=== PATIENT | male | born 1990 | race Caucasian/White ===

== ENCOUNTER 2016-12-15 16:16 | Emergency (ER) | payer OTHER ==
[2016-12-15] MEDS ORDERED: Sodium Chloride 0.9% 2.5 ML Syringe FLUSH PRN (16:57)
[2016-12-15] MEDS ORDERED: LORazepam 0.5 MG Tab PO ONE (16:57)
[2016-12-15] MEDS ORDERED: Sodium Chloride 0.9% 10 ML Syringe FLUSH PRN (16:57)
[2016-12-15] MEDS ORDERED: Sodium Chloride 0.9% 1,000 ML IV ONE (16:57)
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
[2016-12-15 17:58] LABS: CHLORIDE,CL 103 mmol/L (98-110); SODIUM,NA 140 mmol/L (136-146)
[2016-12-15 18:38] VITALS: BP 138/85
== END 2016-12-15 18:25 | disposition home or self-care (01) ==
LOC: MW.ED 16:16
DX: E86.0 Dehydration (principal); M62.81 Muscle weakness (generalized); T43.225A Adverse effect of selective serotonin reuptake inhibitors, initial encounter; F17.210 Nicotine dependence, cigarettes, uncomplicated; Z79.899 Other long term (current) drug therapy
CPT/HCPCS: 36415; 80053; 85025; 96360; 99284; A9270; G0480; J7040; 99283

== ENCOUNTER 2017-02-16 01:00 | Emergency (ER) | payer OTHER ==
[2017-02-16] MEDS ORDERED: Lidocaine/EPINEPHrine/Tetracaine Soln 1 ML TOP ONE (01:02)
[2017-02-16] MEDS ORDERED: Bacitracin Oint 1 GM U/D Packet TOP ONE (01:06)
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
[2017-02-16] MEDS ORDERED: Sodium Chloride 0.9% 10 ML Syringe FLUSH PRN (01:57)
[2017-02-16] MEDS ORDERED: Sodium Chloride 0.9% 2.5 ML Syringe FLUSH PRN (01:57)
[2017-02-16] MEDS ORDERED: Sodium Chloride 0.9% 1,000 ML IV SCH (02:00)
[2017-02-16] MEDS ORDERED: LORazepam 2 MG/ML MDV IVPUSH ONE (02:25)
[2017-02-16 02:33] LABS: CHLORIDE,CL 106 mmol/L (98-110); SODIUM,NA 143 mmol/L (136-146)
[2017-02-16 02:59] VITALS: BP 118/79
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
== END 2017-02-16 02:42 ==
LOC: MW.ED 01:00
DX: S06.6X9A Traumatic subarachnoid hemorrhage with loss of consciousness of unspecified duration, initial encounter (principal); S06.5X9A Traumatic subdural hemorrhage with loss of consciousness of unspecified duration, initial encounter; S01.01XA Laceration without foreign body of scalp, initial encounter; F41.9 Anxiety disorder, unspecified; Z79.899 Other long term (current) drug therapy; W01.0XXA Fall on same level from slipping, tripping and stumbling without subsequent striking against object, initial encounter
CPT/HCPCS: 70450; 80053; 85025; 85610; 96361; 96374; 99285; G0480; J2060; J7040

== ENCOUNTER 2017-02-20 11:30 | Emergency (ER) | payer OTHER ==
--- NOTE | 2017-02-20 11:45 | EDM.PDOC ---
ED HPI GENERAL MEDICAL PROBLEM - General Chief Complaint: Headache Stated Complaint: HEAD INJURY Time Seen by Provider: 02/20/17 12:52 - History of Present Illness INITIAL COMMENTS - FREE TEXT/NARRATIVE: HISTORY AND PHYSICAL: History of present illness: Patient is a 26-year-old white male who was seen on February 16 for traumatic head injury in which he had a traumatic small sub-dural and subarachnoid he was transferred to [facility] and subsequently left AMA yesterday he presented to the clinic today with headache and was referred back to the emergency department patient is refusing any treatment he is needle phobic he states his headache is similar to what has been or last 3-4 days he's had no new neurological signs or symptoms he does agree to repeat CT scan he again is refusing any other diagnostics or therapeutics Review of systems: As per history of present illness and below otherwise all systems reviewed and negative. Past medical history: As per history of present illness and as reviewed below otherwise noncontributory. Surgical history: As per history of present illness and as reviewed below otherwise noncontributory. Social history: No reported history of drug or alcohol abuse. Family history: As per history of present illness and as reviewed below otherwise noncontributory. Physical exam: HEENT: Atraumatic, normocephalic, pupils reactive, negative for conjunctival pallor or scleral icterus, mucous membranes moist, throat clear, neck supple, nontender, trachea midline. Lungs: Clear to auscultation, breath sounds equal bilaterally, chest nontender. Heart: S1S2, regular, negative for clicks, rubs, or JVD. Abdomen: Soft, nondistended, nontender. Negative for masses or hepatosplenomegaly. Negative for costovertebral tenderness. Pelvis: Stable nontender. Genitourinary: Deferred. Rectal: Deferred. Extremities: Atraumatic, negative for cords or calf pain. Neurovascular unremarkable. Neuro: Awake, alert, oriented. Cranial nerves II through XII unremarkable. Cerebellum unremarkable. Motor and sensory unremarkable throughout. Exam nonfocal. Diagnostics: CT brain Therapeutics: Deferred Impression: #1 history of head trauma with subarachnoid/subdural hemorrhage Definitive disposition and diagnosis as appropriate pending reevaluation and review of above. head Pain Score (Numeric/FACES): 5 - Related Data Allergies Allergy/AdvReac Type Severity Reaction Status Date / Time No Known Allergies Allergy Verified 02/20/17 11:53 Home Meds: Home Meds Hydrocodone/Acetaminophen [Hydrocodon-Acetaminophen 5-325] 1 each PO Q4HR PRN [History] levETIRAcetam [Keppra] 500 mg PO Q12HR 02/20/17 [History] Past Medical History - Past Health History Medical/Surgical History: Denies Medical/Surgical History Psychiatric History: Reports: Anxiety - Infectious Disease History Infectious Disease History: Reports: Chicken Pox - Past Surgical History Other HEENT Surgeries/Procedures: "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" Social & Family History - Family History Family Medical History: Noncontributory - Tobacco Use Smoking Status *Q: Current Every Day Smoker Years of Tobacco use: 10 Packs/Tins Daily: 1 Second Hand Smoke Exposure: No - Caffeine Use Caffeine Use: Reports: Coffee, Energy Drinks - Alcohol Use Days Per Week of Alcohol Use: 0 - Recreational Drug Use Recreational Drug Use: No Drug Use in Last 12 Months: Yes Recreational Drug Type: Reports: Marijuana/Hashish Recreational Drug Use Frequency: Binges ED ROS GENERAL - Review of Systems Review Of Systems: ROS reveals no pertinent complaints other than HPI. ED EXAM, GENERAL - Physical Exam Exam: See Below (See dictation) Course - Vital Signs Text/Narrative:: Patient's course in emergency department has been unremarkable CT does reflect a slight progression of his subarachnoid and subdural with small edema noted no shift I discussed these findings with patient and gave options including admission here transfer to [place] patient declines both he remains awake alert oriented 3 understands risks and benefits request discharge home and states he will follow-up with [place] he agrees to return for persistent or worsening symptoms as discussed and will be kept off work until reevaluated Last Recorded V/S: Last Vital Signs Temp 36.8 C 02/20/17 11:30 Pulse 77 02/20/17 11:30 Resp 18 02/20/17 11:30 BP 122/69 02/20/17 11:30 Pulse Ox 97 02/20/17 11:30 Departure - Departure Time of Disposition: 12:52 Disposition: Against Medical Advice 07 Condition: Good Clinical Impression: Subarachnoid hemorrhage, Subdural hemorrhage - Discharge Information Referrals: PCP,Unknown [Primary Care Provider] - Forms: ED Department Discharge Additional Instructions: The following information is given to patients seen in the emergency department who are being discharged to home. This information is to outline your options for follow-up care. We provide all patients seen in our emergency department with a follow-up referral. The need for follow-up, as well as the timing and circumstances, are variable depending upon the specifics of your emergency department visit. If you don't have a primary care physician on staff, we will provide you with a referral. We always advise you to contact your personal physician following an emergency department visit to inform them of the circumstance of the visit and for follow-up with them and/or the need for any referrals to a consulting specialist. The emergency department will also refer you to a specialist when appropriate. This referral assures that you have the opportunity for followup care with a specialist. All of these measure are taken in an effort to provide you with optimal care, which includes your followup. Under all circumstances we always encourage you to contact your private physician who remains a resource for coordinating your care. When calling for followup care, please make the office aware that this follow-up is from your recent emergency room visit. If for any reason you are refused follow-up, please contact the [facility] emergency department at and asked to speak to the emergency department charge nurse. Follow-up private medical doctor in [place] as discussed return as needed as discussed
--- NOTE | 2017-02-20 12:39 | CT ---
EXAMINATION: Non contrast CT head. Coronal and sagittal reformats. HISTORY: Headache Comparison: 02/16/2017. FINDINGS: There is increased hemorrhage within the right frontal region. There is a new right frontal subdural hematoma noted. There are also hyperdense areas extending slightly into the frontal lobe with adjacen t edema. There are are also mild cortical hypodensity within the medial left frontal lobe. No signifi cant mass effect or midline shift. No abnormal intracranial calcifications are detected. No evidence of substantial vascular calcificat ions. Paranasal sinuses and mastoid air cells are well aerated without substantial findings. Pituitary fossa appears unremarkable. Orbits and globes appear symmetric. Calvarium is intact. No evidence of skull fracture. IMPRESSION: 1. Mild extension of the previously demonstrated subarachnoid hemorrhage is noted within the right fr ontal region with a new small subdural component. There is moderate adjacent edema. 2. There is also hypodense portion within the left frontal lobe likely representing a small cortical contusion as well without significant hemorrhagic component. Line 3. No midline shift or mass effect.
[2017-02-20 13:08] VITALS: BP 114/61
== END 2017-02-20 13:01 | disposition left against medical advice (07) ==
LOC: MW.ED 11:30
DX: S06.6X9A Traumatic subarachnoid hemorrhage with loss of consciousness of unspecified duration, initial encounter (principal); S06.5X9A Traumatic subdural hemorrhage with loss of consciousness of unspecified duration, initial encounter; F17.210 Nicotine dependence, cigarettes, uncomplicated; X58.XXXA Exposure to other specified factors, initial encounter
CPT/HCPCS: 70450; 70450-26; 99283; 99285-25

== ENCOUNTER 2017-04-26 11:07 | Emergency (ER) | payer OTHER ==
--- NOTE | 2017-04-26 11:19 | EDM.PDOC ---
ED HPI GENERAL MEDICAL PROBLEM - General Chief Complaint: General Stated Complaint: MEDICAL CLEARANCE FOR WORK Time Seen by Provider: 04/26/17 11:18 Source of Information: Reports: Patient History Limitations: Reports: No Limitations - History of Present Illness INITIAL COMMENTS - FREE TEXT/NARRATIVE: HISTORY AND PHYSICAL: History of present illness: Patient is a 27-year-old male who presents to the emergency room by the request of his employer to be screened for alcohol use. Patient states last night he was using alcohol as today was supposed to be his day off. 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 Patient states that they are unable to go to occupational health, as "we can't ask that of him" - per his employer. Patient is alert and oriented and answering questions appropriately. Denies any systemic complaints at this time. Review of systems: As per history of present illness and below otherwise all systems reviewed and negative. Past medical history: As per history of present illness and as reviewed below otherwise noncontributory. Surgical history: As per history of present illness and as reviewed below otherwise noncontributory. Social history: No reported history of drug or alcohol abuse. Family history: As per history of present illness and as reviewed below otherwise noncontributory. Physical exam: General: Well-developed and well-nourished 27-year-old male. Alert and oriented. Appears nontoxic and in no acute distress. HEENT: Atraumatic, normocephalic, pupils reactive, negative for conjunctival pallor or scleral icterus, mucous membranes moist, throat clear, neck supple, nontender, trachea midline. Lungs: Clear to auscultation, breath sounds equal bilaterally, chest nontender. Heart: S1S2, regular rate and rhythm Abdomen: Soft, nondistended, nontender. Pelvis: Stable nontender. Genitourinary: Deferred. Rectal: Deferred. Extremities: Atraumatic, negative for cords or calf pain. Neurovascular unremarkable. Neuro: Awake, alert, oriented. Cranial nerves II through XII unremarkable. Cerebellum unremarkable. Motor and sensory unremarkable throughout. Exam nonfocal. Discussed with the patient appropriate channels for medical clearance to resume work. We will not be able to assess his ability to perform his job duties nor assess for acute alcohol intoxication. The patient offers no complaints and has no pain or concerns. Patient is aware of occupational health facilities, we will give phone numbers for him to follow-up with. Patient voices understanding and is agreeable to plan of care. Denies any further questions at this time. Diagnostics: [] Therapeutics: [] Impression: Medical screening Plan: 1. A emergency department does not do drugs or alcohol screenings for employment. Please follow up with occupational health for medical clearance. 2. Follow-up with your primary care provider as needed. Return to the ED as needed and as discussed. Definitive disposition and diagnosis as appropriate pending reevaluation and review of above. 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" Social & Family History - Family History Family Medical History: Noncontributory - Tobacco Use Smoking Status *Q: Current Every Day Smoker Years of Tobacco use: 10 Packs/Tins Daily: 1 Used Tobacco, but Quit: Yes Month Tobacco Last Used: 1 Second Hand Smoke Exposure: No - Caffeine Use Caffeine Use: Reports: Coffee, Energy Drinks - Alcohol Use Days Per Week of Alcohol Use: 0 - Recreational Drug Use Recreational Drug Use: No Drug Use in Last 12 Months: Yes Recreational Drug Type: Reports: Marijuana/Hashish Recreational Drug Use Frequency: Binges ED ROS GENERAL - Review of Systems Review Of Systems: ROS reveals no pertinent complaints other than HPI. ED EXAM, GENERAL - Physical Exam Exam: See Below (See dictation) Course - Vital Signs Last Recorded V/S: Last Vital Signs Temp 97.4 F 04/26/17 11:16 Pulse 118 H 04/26/17 11:16 Resp 18 04/26/17 11:16 BP 152/86 H 04/26/17 11:16 Pulse Ox 96 04/26/17 11:16 Departure - Departure Time of Disposition: 11:32 Disposition: Home, Self-Care 01 Clinical Impression: Encounter for wellness examination - Discharge Information Referrals: Betty Perez NP [Primary Care Provider] - Forms: ED Department Discharge Additional Instructions: My general discharge The following information is given to patients seen in the emergency department who are being discharged to home. This information is to outline your options for follow-up care. We provide all patients seen in our emergency department with a follow-up referral. The need for follow-up, as well as the timing and circumstances, are variable depending upon the specifics of your emergency department visit. If you don't have a primary care physician on staff, we will provide you with a referral. We always advise you to contact your personal physician following an emergency department visit to inform them of the circumstance of the visit and for follow-up with them and/or the need for any referrals to a consulting specialist. The emergency department will also refer you to a specialist when appropriate. This referral assures that you have the opportunity for follow-up care with a specialist. All of these measure are taken in an effort to provide you with optimal care, which includes your follow-up. Under all circumstances we always encourage you to contact your private physician who remains a resource for coordinating your care. When calling for follow-up care, please make the office aware that this follow-up is from your recent emergency room visit. If for any reason you are refused follow-up, please contact the [facility] Emergency Department at and asked to speak to the emergency department charge nurse. [facility] [address] [place] [id number] 1. A emergency department does not do drugs or alcohol screenings for employment. Please follow up with occupational health for medical clearance. 2. Follow-up with your primary care provider as needed. Return to the ED as needed and as discussed.
[2017-04-26 11:20] VITALS: BP 152/86
== END 2017-04-26 11:59 | disposition home or self-care (01) ==
LOC: MW.ED 11:07
DX: Z04.8 Encounter for examination and observation for other specified reasons (principal); F17.210 Nicotine dependence, cigarettes, uncomplicated
CPT/HCPCS: 99282

== ENCOUNTER 2017-07-01 11:58 | Emergency (ER) | payer OTHER ==
[2017-07-01 13:11] VITALS: BP 117/69
--- NOTE | 2017-07-01 14:14 | EDM.PDOC ---
ED HPI GENERAL MEDICAL PROBLEM - General Chief Complaint: General Stated Complaint: LEFT SIDE RIB PAIN Time Seen by Provider: 07/01/17 14:10 Source of Information: Reports: Patient History Limitations: Reports: No Limitations - History of Present Illness INITIAL COMMENTS - FREE TEXT/NARRATIVE: HISTORY AND PHYSICAL: History of present illness: 27-year-old male presents to the clinic with chief complaint of left rib pain. Patient fell approximately one week ago on his left side after slipping on the ice and experienced immediate pain. He has not sought any treatment over the past week. He has not been taking any medication for pain relief and has not applied any heat or ice to the left side. He noted that he was reaching above his head on the left side this morning and heard and felt a pop. Pain was initially 2 out of 10 after the fall and has now increased to 7 out of 10. He has increased pain with deep inspiration. Patient denies any other acute concerns at this time. Review of systems: As per history of present illness and below otherwise all systems reviewed and negative. Past medical history: As per history of present illness and as reviewed below otherwise noncontributory. Surgical history: As per history of present illness and as reviewed below otherwise noncontributory. Social history: No reported history of drug or alcohol abuse. Family history: As per history of present illness and as reviewed below otherwise noncontributory. Physical exam: HEENT: Atraumatic, normocephalic, Lungs: Clear to auscultation, breath sounds equal bilaterally, chest nontender. Heart: S1S2, regular, negative for clicks, rubs, or JVD. Musculoskeletal: Tenderness with palpation along the lower portion of the left ribs. No bony defects or step-offs appreciated. No bruising appreciated. Diagnostics: Left-sided rib x-ray Therapeutics: [] Impression: Chest wall muscle strain Plan: #1. Prescription given for Norflex 100 mg twice a day as needed for muscle spasm. #2. Patient will follow-up with his PCP, Betty Perez. #3. Take Tylenol and ibuprofen as needed for pain. Apply ice and heat to the area of pain. Definitive disposition and diagnosis as appropriate pending reevaluation and review of above. The following information is given to patients seen in the emergency department who are being discharged to home. This information is to outline your options for follow-up care. We provide all patients seen in our emergency department with a follow-up referral. The need for follow-up, as well as the timing and circumstances, are variable depending upon the specifics of your emergency department visit. If you don't have a primary care physician on staff, we will provide you with a referral. We always advise you to contact your personal physician following an emergency department visit to inform them of the circumstance of the visit and for follow-up with them and/or the need for any referrals to a consulting specialist. The emergency department will also refer you to a specialist when appropriate. This referral assures that you have the opportunity for follow-up care with a specialist. All of these measure are taken in an effort to provide you with optimal care, which includes your follow-up. Under all circumstances we always encourage you to contact your private physician who remains a resource for coordinating your care. When calling for follow-up care, please make the office aware that this follow-up is from your recent emergency room visit. If for any reason you are refused follow-up, please contact the [facility] Emergency Department at and asked to speak to the emergency department charge nurse. [facility] [address] [place] [address] left rib pain Pain Score (Numeric/FACES): 6 - Related Data Allergies Allergy/AdvReac Type Severity Reaction Status Date / Time No Known Allergies Allergy Verified 04/26/17 11:15 Home Meds: Home Meds levETIRAcetam [Keppra] 500 mg PO Q12HR 02/20/17 [History] Orphenadrine [Norflex] 100 mg PO BID PRN #14 tab.er 07/01/17 [Rx] Past Medical History - Past Health History Medical/Surgical History: Denies Medical/Surgical History HEENT History: Reports: None Cardiovascular History: Reports: None Respiratory History: Reports: None Gastrointestinal History: Reports: None Genitourinary History: Reports: None Musculoskeletal History: Reports: None Neurological History: Reports: Head Trauma Psychiatric History: Reports: Anxiety Endocrine/Metabolic History: Reports: None Hematologic History: Reports: None Immunologic History: Reports: None Oncologic (Cancer) History: Reports: None Dermatologic History: Reports: None - Infectious Disease History Infectious Disease History: Reports: Chicken Pox - Past Surgical History Head Surgeries/Procedures: Reports: None Other HEENT Surgeries/Procedures: "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" Cardiovascular Surgical History: Reports: None Respiratory Surgical History: Reports: None GI Surgical History: Reports: None Male Surgical History: Reports: None Endocrine Surgical History: Reports: None Musculoskeletal Surgical History: Reports: None Oncologic Surgical History: Reports: None Dermatological Surgical History: Reports: None Social & Family History - Family History Family Medical History: Noncontributory - Tobacco Use Smoking Status *Q: Never Smoker Years of Tobacco use: 10 Packs/Tins Daily: 1 Used Tobacco, but Quit: Yes Month Tobacco Last Used: 1 Second Hand Smoke Exposure: No - Caffeine Use Caffeine Use: Reports: Coffee - Alcohol Use Days Per Week of Alcohol Use: 0 - Recreational Drug Use Recreational Drug Use: No Drug Use in Last 12 Months: Yes Recreational Drug Type: Reports: Marijuana/Hashish Recreational Drug Use Frequency: Binges ED ROS GENERAL - Review of Systems Review Of Systems: ROS reveals no pertinent complaints other than HPI. ED EXAM, GENERAL - Physical Exam Exam: See Below Free Text/Narrative:: see dictation Course - Vital Signs Last Recorded V/S: Last Vital Signs Temp 96.2 F 07/01/17 13:08 Pulse 95 07/01/17 13:08 Resp 18 07/01/17 13:08 BP 117/69 07/01/17 13:08 Pulse Ox 98 07/01/17 13:08 - Orders/Labs/Meds Orders: Active Orders 24 hr Category Date Time Status Ribs 2V wo Chest Lt [CR] Stat Exams 07/01/17 14:10 Taken Departure - Departure Time of Disposition: 16:20 Disposition: Home, Self-Care 01 Clinical Impression: Chest wall muscle strain Qualifiers: Encounter type: initial encounter Qualified Code(s): S29.011A - Strain of muscle and tendon of front wall of thorax, initial encounter - Discharge Information Prescriptions: Orphenadrine [Norflex] 100 mg PO BID PRN #14 tab.er PRN Reason: Muscle Spasm Instructions: Thoracic Strain, [id number] Referrals: PCP,Unknown [Primary Care Provider] - Betty Perez PHARMACY TECHNICIAN [facility] [Nurse Practitioner] - (f/u with Betty in 1 week) Forms: ED Department Discharge - Problem List & Annotations (1) Chest wall muscle strain SNOMED Code(s): 776676179 Code(s): S29.011A - STRAIN OF MUSCLE AND TENDON OF FRONT WALL OF THORAX, INIT Status: Acute Priority: High Current Visit: Yes Qualifiers: Encounter type: initial encounter Qualified Code(s): S29.011A - Strain of muscle and tendon of front wall of thorax, initial encounter - Problem List Review Problem List Initiated/Reviewed/Updated: Yes - My Orders Last 24 Hours: My Active Orders 07/01/17 14:10 Ribs 2V wo Chest Lt [CR] Stat - Assessment/Plan Last 24 Hours: My Active Orders 07/01/17 14:10 Ribs 2V wo Chest Lt [CR] Stat
--- NOTE | 2017-07-02 08:38 | CR ---
EXAMINATION: Left RIBS HISTORY: Pain COMPARISON: None TECHNIQUE: 2 views FINDINGS: The lungs are clear without focal consolidation. No pleural effusion or pneumothorax. Bone mineralization is normal. No displaced rib fracture. IMPRESSION: No displaced rib fracture identified.
== END 2017-07-01 17:12 | disposition home or self-care (01) ==
LOC: MW.ED 11:58
DX: S29.011A Strain of muscle and tendon of front wall of thorax, initial encounter (principal); Z87.891 Personal history of nicotine dependence; W00.0XXA Fall on same level due to ice and snow, initial encounter
CPT/HCPCS: 71100-26-LT; 71100-LT; 99283; 99284

== ENCOUNTER 2018-01-04 09:22 | Emergency (ER) | payer OTHER ==
[2018-01-04 09:37] VITALS: BP 136/84
== END 2018-01-04 09:47 | disposition left against medical advice (07) ==
LOC: MW.ED 09:22
DX: Z53.21 Procedure and treatment not carried out due to patient leaving prior to being seen by health care provider (principal)
CPT/HCPCS: 99283

== ENCOUNTER 2023-03-27 16:23 | Emergency (ER) | payer SELFPAY ==
[2023-03-27] MEDS ORDERED: Sodium Chloride 0.9% 1,000 ML IV ONE (16:25)
[2023-03-27 16:35] LABS: BASOPHILS ABSOLUTE AUTO 0.03 K/uL (0.00-0.20); BASOPHILS PERCENT AUTO 0.3 % (0.0-1.0); EOSINOPHILS ABSOLUTE AUTO 0.08 K/uL (0.00-0.45); EOSINOPHILS PERCENT AUTO 0.7 % (0.0-6.0); HEMATOCRIT 44.3 % (42.0-52.0); HEMOGLOBIN 15.2 g/dL (14.0-18.0); IMMATURE GRAN ABSOLUTE AUTO 0.04 K/uL (0.00-0.05); IMMATURE GRAN PERCENT AUTO 0.4 % (0.0-0.4); LYMPHOCYTES ABSOLUTE AUTO 2.62 K/uL (1.00-4.80); LYMPHOCYTES PERCENT AUTO 24.1 % (24.0-44.0); MEAN CORPUSCULAR HEMOGLOBIN 29.2 pg (28.0-32.0); MEAN CORPUSCULAR HGB CONC 34.3 g/dL (32.0-36.0); MONOCYTES PERCENT AUTO 5.5 % (0.0-8.0); PLATELET COUNT,PLT 299 K/uL (150-400); RED BLOOD CELL COUNT 5.21 M/uL (4.52-5.90); WHITE BLOOD CELL COUNT,WBC 10.87 K/uL (3.9-11.3)
[2023-03-27] MEDS ORDERED: LORazepam 2 MG/ML SDV IVPUSH ONE ×2 (16:49→16:55)
[2023-03-27 17:21] LABS: A/G RATIO 1.1 (0.9-1.6); ALBUMIN 4.3 g/dL (3.4-5.0); BILIRUBIN TOTAL 0.3 mg/dL (0.2-1.0); CALCIUM 9.6 mg/dL (8.5-10.1); CARBON DIOXIDE,CO2 22.2 mmol/L (21.0-32.0); EST CRCL DRUG DOSING (CG) 104.09 mL/min; POTASSIUM,K 4.2 mmol/L (3.5-5.1); PROTEIN TOTAL,TP 8.3 g/dL (6.4-8.2)
[2023-03-27] MEDS ORDERED: Ondansetron 4 MG Tab.DIS PO ONE (18:07)
[2023-03-27] MEDS ORDERED: Acetaminophen 500 MG Tab PO ONE (18:07)
[2023-03-27 18:31] LABS: APPEARANCE,URINE CLEAR; BILIRUBIN,URINE NEGATIVE (NEGATIVE); COLOR,URINE YELLOW; GLUCOSE,URINE NEGATIVE (NEGATIVE); KETONES,URINE NEGATIVE (NEGATIVE); LEUKOCYTE ESTERASE,URINE NEGATIVE (NEGATIVE); NITRITE,URINE NEGATIVE (NEGATIVE); OCCULT BLOOD,URINE NEGATIVE (NEGATIVE); PROTEIN,URINE NEGATIVE (NEGATIVE); UROBILINOGEN,URINE 0.2 EU/dL (<2.0)
[2023-03-27 18:58] LABS: AMPHETAMINES SCREEN, URINE NEGATIVE (CUTOFF=500); BARBITURATE SCREEN,URINE NEGATIVE (CUTOFF=200); BENZODIAZEPINES SCREEN,URINE NEGATIVE (CUTOFF=150); BUPRENORPHINE SCREEN,URINE NEGATIVE (CUTOFF=10); METHADONE SCREEN, URINE NEGATIVE (CUTOFF=200); METHAMPHETAMINES SCREEN, URINE NEGATIVE (CUTOFF=500); OXYCODONE SCREEN,URINE NEGATIVE (CUT0FF=100); PCP SCREEN,URINE NEGATIVE (CUTOFF=25); THC SCREEN,URINE 20 NG/ML NEGATIVE (CUTOFF=50)
[2023-03-27 19:05] VITALS: BP 121/83; PULSE 105
[2023-03-27] MEDS ORDERED: Ibuprofen 200 MG Tab PO ONE (19:42)
== END 2023-03-27 19:56 | disposition home or self-care (01) ==
LOC: MW.ED 16:23
DX: S09.90XA Unspecified injury of head, initial encounter (principal); F10.129 Alcohol abuse with intoxication, unspecified; Z79.899 Other long term (current) drug therapy; Y04.2XXA Assault by strike against or bumped into by another person, initial encounter
CPT/HCPCS: 36415; 70450; 70486; 72125; 80053; 80305; 80307; 81003; 85025; 96361; 96374; 99284; A9270; J2060; J7030